=== PATIENT | female | born 1960 | race African-American/Black ===

== ENCOUNTER 2023-05-14 08:35 | Emergency (ER) | payer MEDICAID ==
[~2023-05-14] VITALS: Ht 170.2 cm; Wt 115.9 kg
[2023-05-14 08:38] VITALS: TEMP 98.9
[2023-05-14 12:08] VITALS: BP 126/84; PULSE 65; RESP 12
== END 2023-05-14 12:17 | disposition home or self-care (01) ==
LOC: EMS 08:35 → EDSEX 08:35 → EMS 12:17
DX: R60.0 Localized edema (principal); I10 Essential (primary) hypertension; F17.210 Nicotine dependence, cigarettes, uncomplicated
CPT/HCPCS: 93970; 99284; Z7502